=== PATIENT | male | born 1960 | race Caucasian/White ===

== ENCOUNTER → 2021-04-10 | Outpatient (CLI) | payer MEDICARE, OTHER | LOC: KOH-I 09:32 | DX: M79.671 Pain in right foot (principal); S92.511A Displaced fracture of proximal phalanx of right lesser toe(s), initial encounter for closed fracture | CPT/HCPCS: 73630 ==

== ENCOUNTER 2021-06-07 16:24 | Emergency (ER) | payer MEDICARE, OTHER | END 2021-06-07 18:55 | disposition home or self-care (01) | LOC: ER1 16:24 | DX: R21 Rash and other nonspecific skin eruption (principal); R06.02 Shortness of breath; R06.00 Dyspnea, unspecified; T50.B95A Adverse effect of other viral vaccines, initial encounter; I10 Essential (primary) hypertension | CPT/HCPCS: 0011A; 91301; 99283 ==